=== PATIENT | female | born 1940 | race Caucasian/White ===

== ENCOUNTER 2021-11-11 17:21 | Inpatient (IN) | payer MEDICARE ==
[~2021-11-11] VITALS: Ht 154.9 cm; Wt 52.0 kg
[2021-11-11 17:57] LABS: COVID AG,FIA SOURCE NASOPHARYNGEAL
[2021-11-11 18:07] LABS: APPEARANCE,URINE HAZY (CLEAR); BILIRUBIN,URINE NEGATIVE (NEGATIVE); GLUCOSE, URINE (UA) NEGATIVE (NEGATIVE); KETONES,URINE NEGATIVE (NEGATIVE); LEUKOCYTE ESTERASE ,URINE LARGE (NEGATIVE); NITRATE,URINE POSITIVE (NEGATIVE); OCCULT BLOOD,URINE NEGATIVE (NEGATIVE); PH,URINE 5.5 (5.0-8.0); PROTEIN,URINE 30-70 mg/dL (NEGATIVE); SPECIFIC GRAVITIY, URINE 1.011 (1.003-1.030); UROBILINOGEN,URINE <=1.0 mg/dL (<=1.0)
[2021-11-11] MEDS ORDERED: DIAZEPAM 5 MG/ML 2 ML SYRINGE IVP ONE ×2 (18:15→19:45)
[2021-11-11] MEDS ORDERED: HALOPERIDOL LACTATE 5 MG/ML VIAL IVP ONE (18:15)
[2021-11-11 18:21] LABS: BACTERIA,URINE Many /HPF (None Seen); RBC,URINE None Seen /HPF (0-2); WBC,URINE 26-50 /HPF (0-5)
[2021-11-11] MEDS ORDERED: CefTRIAXone 1 GM/DEXTROSE 50 ML IV ONE (20:30)
[2021-11-11] MEDS ORDERED: MIDAZOLAM HCL 2 MG/2 ML VIAL IVP ONE (21:00)
[2021-11-11 21:51] LABS: BASOPHILS % (AUTO) 0.6 % (0.0-2.0); EOSINOPHILS % (AUTO) 1.3 % (1.0-6.0); HEMATOCRIT 28.4 % (36-46); HEMOGLOBIN 9.5 g/dL (12.0-16.0); LYMPHOCYTES # (AUTO) 1.3 K/uL (1.0-4.8); MEAN CORPUSCULAR HEMOGLOBIN 31.6 pg (26.0-34.0); MEAN CORPUSCULAR HGB CONC 33.4 G/dL (31.0-37.0); MEAN CORPUSCULAR VOLUME 95 fL (80-100); MONOCYTES # (AUTO) 0.6 K/uL (0.1-1.0); MONOCYTES % (AUTO) 8.8 % (2.0-9.0); NEUTROPHILS # (AUTO) 4.8 K/uL (1.8-7.7); NEUTROPHILS % (AUTO) 70.3 % (40.0-70.0); PLATELET COUNT (AUTO) 159 K/uL (150-450)
[2021-11-11 22:00] LABS: CALCIUM, TOTAL 9.4 mg/dL (8.8-10.5); CREATININE 1.57 mg/dL (0.60-1.30); POTASSIUM 4.1 mmol/L (3.5-5.1)
[2021-11-11 22:10] LABS: ALBUMIN 3.6 g/dL (3.4-5.0); BILIRUBIN,TOTAL 0.5 mg/dL (0.1-1.0); TOTAL PROTEIN, SERUM 7.6 g/dL (6.4-8.2)
[2021-11-11] MEDS ORDERED: BISACODYL 10 MG RECTAL RECTAL SUPPOSITORY PR PRN (22:15)
[2021-11-11] MEDS: AmLODIPine BESYLATE 5 MG TABLET PO SCH (22:15)
[2021-11-11] MEDS ORDERED: ACETAMINOPHEN 325 MG TABLET PO PRN (22:15)
[2021-11-11] MEDS ORDERED: SODIUM CHLORIDE 0.9% 1,000 ML IV ONE (22:15)
[2021-11-11] MEDS: CARVEDILOL 6.25 MG TABLET PO SCH (22:30)
[2021-11-11] MEDS: ATORVASTATIN CALCIUM 20 MG TABLET PO SCH (22:30)
[2021-11-11] MEDS ORDERED: ASPIRIN 81 MG CHEWABLE TABLET PO SCH (22:30)
[2021-11-11] MEDS ORDERED: ASPIRIN 81 MG CHEWABLE TABLET PO ONE (22:45)
[2021-11-12] VITALS (7 sets, daily range): BP systolic 126–173; BP diastolic 58–94
[2021-11-12] MEDS: LORazepam 2 MG/ML VIAL IVP PRN ×2 (02:38→13:42)
[2021-11-12] MEDS: CARVEDILOL 6.25 MG TABLET PO SCH ×3 (07:32→21:19)
[2021-11-12] MEDS: FAMOTIDINE 20 MG TABLET PO SCH (07:32)
[2021-11-12] MEDS: DOCUSATE SODIUM 100 MG CAPSULE PO SCH ×2 (07:32→21:19)
[2021-11-12] MEDS: HEPARIN SODIUM,PORCINE 5,000 UNITS/ML VIAL SQ SCH ×4 (08:00→15:02)
[2021-11-12] MEDS: ASPIRIN 81 MG CHEWABLE TABLET PO SCH (21:19)
[2021-11-12] MEDS: ATORVASTATIN CALCIUM 20 MG TABLET PO SCH (21:19)
[2021-11-12] MEDS: AmLODIPine BESYLATE 5 MG TABLET PO SCH (21:20)
[2021-11-12] MEDS: RisperiDONE 0.5 MG TABLET PO SCH (21:21)
[2021-11-12] MEDS ORDERED: SODIUM CHLORIDE 0.9% 500 ML IV ONE (23:33)
[2021-11-13] MEDS: CefTRIAXone 1 GM/DEXTROSE 50 ML IV SCH
[2021-11-13] MEDS: HEPARIN SODIUM,PORCINE 5,000 UNITS/ML VIAL SQ SCH ×3 (00:07→16:00)
[2021-11-13 04:26] VITALS: BP 122/60
[2021-11-13 08:24] VITALS: BP 149/65
[2021-11-13] MEDS: DOCUSATE SODIUM 100 MG CAPSULE PO SCH (09:00)
[2021-11-13] MEDS: FAMOTIDINE 20 MG TABLET PO SCH (09:00)
[2021-11-13] MEDS: CARVEDILOL 6.25 MG TABLET PO SCH (09:00)
[2021-11-13 16:18] VITALS: BP 148/104
[2021-11-13] MEDS: LORazepam 2 MG/ML VIAL IVP PRN (17:45)
[2021-11-14 00:28] VITALS: BP 136/72
[2021-11-14] MEDS: DOCUSATE SODIUM 100 MG CAPSULE PO SCH ×3 (00:52→21:28)
[2021-11-14] MEDS: ATORVASTATIN CALCIUM 20 MG TABLET PO SCH ×2 (00:52→21:28)
[2021-11-14] MEDS: ASPIRIN 81 MG CHEWABLE TABLET PO SCH ×2 (00:52→21:28)
[2021-11-14] MEDS: AmLODIPine BESYLATE 5 MG TABLET PO SCH ×2 (00:53→21:29)
[2021-11-14] MEDS: RisperiDONE 0.5 MG TABLET PO SCH (00:53)
[2021-11-14] MEDS: CARVEDILOL 6.25 MG TABLET PO SCH ×3 (00:53→21:28)
[2021-11-14] MEDS: CefTRIAXone 1 GM/DEXTROSE 50 ML IV SCH (00:54)
[2021-11-14] MEDS: LORazepam 2 MG/ML VIAL IVP PRN (01:04)
[2021-11-14] MEDS: HEPARIN SODIUM,PORCINE 5,000 UNITS/ML VIAL SQ SCH ×3 (01:05→16:54)
[2021-11-14 05:00] VITALS: BP 129/78
[2021-11-14 09:08] VITALS: BP 147/87
[2021-11-14] MEDS: FAMOTIDINE 20 MG TABLET PO SCH (09:53)
[2021-11-14] MEDS: QUEtiapine FUMARATE 25 MG TABLET PO SCH ×2 (11:18→21:28)
[2021-11-14 12:01] VITALS: BP 111/65
[2021-11-14 16:00] VITALS: BP 148/67
[2021-11-14] MEDS: VALPROIC ACID 250 MG/5 ML SOLUTION UDCUP PO SCH ×2 (16:53→21:29)
[2021-11-14 20:02] VITALS: BP 148/97
[2021-11-15] VITALS (7 sets, daily range): BP systolic 118–149; BP diastolic 50–84
[2021-11-15] MEDS: HEPARIN SODIUM,PORCINE 5,000 UNITS/ML VIAL SQ SCH ×4 (00:57→23:21)
[2021-11-15] MEDS: CefTRIAXone 1 GM/DEXTROSE 50 ML IV SCH ×2 (00:57→23:23)
[2021-11-15] MEDS: QUEtiapine FUMARATE 25 MG TABLET PO SCH ×2 (08:57→20:30)
[2021-11-15] MEDS: FAMOTIDINE 20 MG TABLET PO SCH (08:57)
[2021-11-15] MEDS: VALPROIC ACID 250 MG/5 ML SOLUTION UDCUP PO SCH ×3 (08:58→20:30)
[2021-11-15] MEDS: DOCUSATE SODIUM 100 MG CAPSULE PO SCH ×2 (08:58→20:29)
[2021-11-15] MEDS: CARVEDILOL 6.25 MG TABLET PO SCH ×2 (08:58→20:34)
[2021-11-15] MEDS: ATORVASTATIN CALCIUM 20 MG TABLET PO SCH (20:29)
[2021-11-15] MEDS: ASPIRIN 81 MG CHEWABLE TABLET PO SCH (20:29)
[2021-11-15] MEDS: AmLODIPine BESYLATE 5 MG TABLET PO SCH (20:34)
[2021-11-15] MEDS ORDERED: SODIUM CHLORIDE 0.9% 250 ML IV ONE (23:11)
[2021-11-16 02:56] LABS: GLUCOMETER DEV NAME(LOC) 6N.2; GLUCOSE,POINT OF CARE 198 MG/DL (70-110)
[2021-11-16 05:50] VITALS: BP 126/78
[2021-11-16] MEDS: HEPARIN SODIUM,PORCINE 5,000 UNITS/ML VIAL SQ SCH ×3 (08:00→23:49)
[2021-11-16] MEDS: DOCUSATE SODIUM 100 MG CAPSULE PO SCH ×2 (09:47→20:12)
[2021-11-16] MEDS: CARVEDILOL 6.25 MG TABLET PO SCH ×2 (09:48→20:11)
[2021-11-16] MEDS: QUEtiapine FUMARATE 25 MG TABLET PO SCH ×2 (09:48→20:12)
[2021-11-16] MEDS: FAMOTIDINE 20 MG TABLET PO SCH (09:48)
[2021-11-16] MEDS: VALPROIC ACID 250 MG/5 ML SOLUTION UDCUP PO SCH ×3 (09:48→20:09)
[2021-11-16 10:14] VITALS: BP 136/60
[2021-11-16] MEDS: QUEtiapine FUMARATE 25 MG TABLET PO PRN (18:13)
[2021-11-16 19:38] VITALS: BP 146/81
[2021-11-16] MEDS: AmLODIPine BESYLATE 5 MG TABLET PO SCH (20:11)
[2021-11-16] MEDS: ASPIRIN 81 MG CHEWABLE TABLET PO SCH (20:11)
[2021-11-16] MEDS: ATORVASTATIN CALCIUM 20 MG TABLET PO SCH (20:11)
[2021-11-16] MEDS: CefTRIAXone 1 GM/DEXTROSE 50 ML IV SCH (23:09)
[2021-11-17 05:13] VITALS: BP 121/62
[2021-11-17] MEDS: HEPARIN SODIUM,PORCINE 5,000 UNITS/ML VIAL SQ SCH ×3 (08:00→23:17)
[2021-11-17] MEDS: FAMOTIDINE 20 MG TABLET PO SCH (08:36)
[2021-11-17] MEDS: DOCUSATE SODIUM 100 MG CAPSULE PO SCH ×2 (08:36→20:45)
[2021-11-17] MEDS: CARVEDILOL 6.25 MG TABLET PO SCH ×2 (08:37→20:45)
[2021-11-17] MEDS: VALPROIC ACID 250 MG/5 ML SOLUTION UDCUP PO SCH ×3 (08:37→20:45)
[2021-11-17] MEDS: QUEtiapine FUMARATE 25 MG TABLET PO SCH ×2 (08:37→20:45)
[2021-11-17] MEDS: QUEtiapine FUMARATE 25 MG TABLET PO PRN (18:02)
[2021-11-17] MEDS: ATORVASTATIN CALCIUM 20 MG TABLET PO SCH (20:45)
[2021-11-17] MEDS: AmLODIPine BESYLATE 5 MG TABLET PO SCH (20:45)
[2021-11-17] MEDS: ASPIRIN 81 MG CHEWABLE TABLET PO SCH (20:45)
[2021-11-17 20:54] VITALS: BP 119/54
[2021-11-18] MEDS: HEPARIN SODIUM,PORCINE 5,000 UNITS/ML VIAL SQ SCH ×3 (08:00→23:19)
[2021-11-18] MEDS: FAMOTIDINE 20 MG TABLET PO SCH (08:34)
[2021-11-18] MEDS: CARVEDILOL 6.25 MG TABLET PO SCH ×2 (08:35→21:00)
[2021-11-18] MEDS: DOCUSATE SODIUM 100 MG CAPSULE PO SCH ×2 (08:46→21:00)
[2021-11-18 08:47] VITALS: BP 168/82
[2021-11-18] MEDS: VALPROIC ACID 250 MG/5 ML SOLUTION UDCUP PO SCH ×3 (12:54→21:20)
[2021-11-18] MEDS: QUEtiapine FUMARATE 25 MG TABLET PO SCH ×2 (12:54→21:21)
[2021-11-18 16:13] VITALS: BP 129/85
[2021-11-18] MEDS: LORazepam 2 MG/ML VIAL IVP PRN (16:28)
[2021-11-18] MEDS: QUEtiapine FUMARATE 25 MG TABLET PO PRN (16:32)
[2021-11-18 19:42] VITALS: BP 121/80
[2021-11-18] MEDS: AmLODIPine BESYLATE 5 MG TABLET PO SCH (21:00)
[2021-11-18] MEDS: ASPIRIN 81 MG CHEWABLE TABLET PO SCH (21:18)
[2021-11-18] MEDS: ATORVASTATIN CALCIUM 20 MG TABLET PO SCH (21:20)
[2021-11-19] MEDS: QUEtiapine FUMARATE 25 MG TABLET PO PRN ×2 (02:04→14:01)
[2021-11-19 04:30] VITALS: BP 135/83
[2021-11-19] MEDS: LORazepam 2 MG/ML VIAL IVP PRN (04:34)
[2021-11-19 08:19] VITALS: BP 131/54
[2021-11-19] MEDS: DOCUSATE SODIUM 100 MG CAPSULE PO SCH ×2 (09:00→20:22)
[2021-11-19] MEDS: HEPARIN SODIUM,PORCINE 5,000 UNITS/ML VIAL SQ SCH ×3 (09:48→23:30)
[2021-11-19] MEDS: FAMOTIDINE 20 MG TABLET PO SCH (09:49)
[2021-11-19] MEDS: CARVEDILOL 6.25 MG TABLET PO SCH ×2 (09:49→20:22)
[2021-11-19] MEDS: QUEtiapine FUMARATE 25 MG TABLET PO SCH ×2 (09:49→20:23)
[2021-11-19] MEDS: VALPROIC ACID 250 MG/5 ML SOLUTION UDCUP PO SCH ×3 (09:52→20:23)
[2021-11-19 16:01] VITALS: BP 124/92
[2021-11-19 19:56] VITALS: BP 162/77
[2021-11-19] MEDS: ASPIRIN 81 MG CHEWABLE TABLET PO SCH (20:22)
[2021-11-19] MEDS: ATORVASTATIN CALCIUM 20 MG TABLET PO SCH (20:23)
[2021-11-19] MEDS: AmLODIPine BESYLATE 5 MG TABLET PO SCH (20:23)
[2021-11-20 04:22] VITALS: BP 145/67
[2021-11-20] MEDS: HEPARIN SODIUM,PORCINE 5,000 UNITS/ML VIAL SQ SCH ×3 (10:03→23:55)
[2021-11-20] MEDS: FAMOTIDINE 20 MG TABLET PO SCH (10:04)
[2021-11-20] MEDS: DOCUSATE SODIUM 100 MG CAPSULE PO SCH ×2 (10:04→20:09)
[2021-11-20] MEDS: QUEtiapine FUMARATE 25 MG TABLET PO SCH ×2 (10:04→20:10)
[2021-11-20] MEDS: CARVEDILOL 6.25 MG TABLET PO SCH ×2 (10:04→20:10)
[2021-11-20] MEDS: VALPROIC ACID 250 MG/5 ML SOLUTION UDCUP PO SCH ×3 (10:05→20:10)
[2021-11-20 10:37] VITALS: BP 148/80
[2021-11-20 17:00] VITALS: BP 166/69
[2021-11-20] MEDS: QUEtiapine FUMARATE 25 MG TABLET PO PRN (17:19)
[2021-11-20] MEDS: AmLODIPine BESYLATE 5 MG TABLET PO SCH (20:10)
[2021-11-20] MEDS: ATORVASTATIN CALCIUM 20 MG TABLET PO SCH (20:10)
[2021-11-20] MEDS: ASPIRIN 81 MG CHEWABLE TABLET PO SCH (20:10)
[2021-11-20 20:19] VITALS: BP 146/70
[2021-11-20] MEDS: LORazepam 2 MG/ML VIAL IVP PRN (23:55)
[2021-11-21 05:00] VITALS: BP 144/78
[2021-11-21] MEDS: CARVEDILOL 6.25 MG TABLET PO SCH ×2 (08:45→19:46)
[2021-11-21] MEDS: FAMOTIDINE 20 MG TABLET PO SCH (08:45)
[2021-11-21] MEDS: QUEtiapine FUMARATE 25 MG TABLET PO SCH ×2 (08:46→19:45)
[2021-11-21] MEDS: DOCUSATE SODIUM 100 MG CAPSULE PO SCH ×2 (08:57→19:46)
[2021-11-21] MEDS: VALPROIC ACID 250 MG/5 ML SOLUTION UDCUP PO SCH ×3 (08:58→19:45)
[2021-11-21] MEDS: HEPARIN SODIUM,PORCINE 5,000 UNITS/ML VIAL SQ SCH ×2 (08:59→15:54)
[2021-11-21 09:03] VITALS: BP 105/65
[2021-11-21 16:59] VITALS: BP 124/62
[2021-11-21] MEDS: AmLODIPine BESYLATE 5 MG TABLET PO SCH (19:45)
[2021-11-21] MEDS: ASPIRIN 81 MG CHEWABLE TABLET PO SCH (19:45)
[2021-11-21] MEDS: ATORVASTATIN CALCIUM 20 MG TABLET PO SCH (19:46)
[2021-11-21 20:00] VITALS: BP 140/94
[2021-11-21] MEDS: LORazepam 2 MG/ML VIAL IVP PRN (20:02)
[2021-11-22] MEDS: HEPARIN SODIUM,PORCINE 5,000 UNITS/ML VIAL SQ SCH ×4 (01:25→23:20)
[2021-11-22] MEDS: LORazepam 2 MG/ML VIAL IVP PRN (03:04)
[2021-11-22 04:40] VITALS: BP 128/82
[2021-11-22] MEDS: VALPROIC ACID 250 MG/5 ML SOLUTION UDCUP PO SCH ×3 (08:24→21:46)
[2021-11-22] MEDS: DOCUSATE SODIUM 100 MG CAPSULE PO SCH ×3 (08:25→21:44)
[2021-11-22] MEDS: QUEtiapine FUMARATE 25 MG TABLET PO SCH ×2 (08:25→21:46)
[2021-11-22] MEDS: FAMOTIDINE 20 MG TABLET PO SCH (08:25)
[2021-11-22 08:30] VITALS: BP 166/87
[2021-11-22] MEDS: CARVEDILOL 6.25 MG TABLET PO SCH ×2 (08:53→21:45)
[2021-11-22] MEDS: ASPIRIN 81 MG CHEWABLE TABLET PO SCH (21:44)
[2021-11-22] MEDS: AmLODIPine BESYLATE 5 MG TABLET PO SCH (21:45)
[2021-11-22] MEDS: ATORVASTATIN CALCIUM 20 MG TABLET PO SCH (21:45)
[2021-11-23 05:57] VITALS: BP 117/83
[2021-11-23 07:55] VITALS: BP 139/59
[2021-11-23] MEDS: FAMOTIDINE 20 MG TABLET PO SCH (08:52)
[2021-11-23] MEDS: CARVEDILOL 6.25 MG TABLET PO SCH ×2 (08:53→20:56)
[2021-11-23] MEDS: HEPARIN SODIUM,PORCINE 5,000 UNITS/ML VIAL SQ SCH ×2 (08:53→16:00)
[2021-11-23] MEDS: VALPROIC ACID 250 MG/5 ML SOLUTION UDCUP PO SCH ×3 (08:53→20:59)
[2021-11-23] MEDS: DOCUSATE SODIUM 100 MG CAPSULE PO SCH ×2 (08:53→20:56)
[2021-11-23] MEDS: QUEtiapine FUMARATE 25 MG TABLET PO SCH ×2 (08:54→20:59)
[2021-11-23 16:01] VITALS: BP 143/85
[2021-11-23 19:29] VITALS: BP 129/80
[2021-11-23] MEDS: ASPIRIN 81 MG CHEWABLE TABLET PO SCH (20:56)
[2021-11-23] MEDS: ATORVASTATIN CALCIUM 20 MG TABLET PO SCH (20:56)
[2021-11-23] MEDS: AmLODIPine BESYLATE 5 MG TABLET PO SCH (20:56)
[2021-11-24] MEDS: LORazepam 2 MG/ML VIAL IVP PRN (00:50)
[2021-11-24 06:19] VITALS: BP 145/67
[2021-11-24] MEDS: HEPARIN SODIUM,PORCINE 5,000 UNITS/ML VIAL SQ SCH ×4 (10:54→23:06)
[2021-11-24] MEDS: VALPROIC ACID 250 MG/5 ML SOLUTION UDCUP PO SCH ×4 (10:58→21:00)
[2021-11-24] MEDS: DOCUSATE SODIUM 100 MG CAPSULE PO SCH ×3 (10:58→21:00)
[2021-11-24] MEDS: CARVEDILOL 6.25 MG TABLET PO SCH ×2 (10:59→20:43)
[2021-11-24] MEDS: FAMOTIDINE 20 MG TABLET PO SCH (10:59)
[2021-11-24] MEDS: QUEtiapine FUMARATE 25 MG TABLET PO SCH ×2 (10:59→20:44)
[2021-11-24] MEDS: ASPIRIN 81 MG CHEWABLE TABLET PO SCH (20:43)
[2021-11-24] MEDS: ATORVASTATIN CALCIUM 20 MG TABLET PO SCH (20:44)
[2021-11-24] MEDS: AmLODIPine BESYLATE 5 MG TABLET PO SCH (20:44)
[2021-11-24 20:55] VITALS: BP 105/77
[2021-11-24] MEDS: QUEtiapine FUMARATE 25 MG TABLET PO PRN (23:12)
[2021-11-25] MEDS: DOCUSATE SODIUM 100 MG CAPSULE PO SCH ×2 (09:00→20:46)
[2021-11-25] MEDS: VALPROIC ACID 250 MG/5 ML SOLUTION UDCUP PO SCH ×3 (09:40→20:45)
[2021-11-25] MEDS: QUEtiapine FUMARATE 25 MG TABLET PO SCH ×2 (09:40→20:45)
[2021-11-25] MEDS: FAMOTIDINE 20 MG TABLET PO SCH (09:40)
[2021-11-25] MEDS: CARVEDILOL 6.25 MG TABLET PO SCH ×2 (09:40→22:26)
[2021-11-25] MEDS: HEPARIN SODIUM,PORCINE 5,000 UNITS/ML VIAL SQ SCH ×2 (09:41→16:00)
[2021-11-25 11:51] VITALS: BP 140/78
[2021-11-25] MEDS: ASPIRIN 81 MG CHEWABLE TABLET PO SCH (20:46)
[2021-11-25] MEDS: ATORVASTATIN CALCIUM 20 MG TABLET PO SCH (20:47)
[2021-11-25] MEDS: LORazepam 2 MG/ML VIAL IVP PRN (21:22)
[2021-11-25] MEDS: QUEtiapine FUMARATE 25 MG TABLET PO PRN (22:26)
[2021-11-25] MEDS: AmLODIPine BESYLATE 5 MG TABLET PO SCH (22:27)
[2021-11-26] MEDS: HEPARIN SODIUM,PORCINE 5,000 UNITS/ML VIAL SQ SCH ×4 (00:21→23:30)
[2021-11-26 01:15] VITALS: BP 111/41
[2021-11-26 05:30] VITALS: BP 100/71
[2021-11-26] MEDS: DOCUSATE SODIUM 100 MG CAPSULE PO SCH ×2 (09:00→21:00)
[2021-11-26 10:02] VITALS: BP 154/99
[2021-11-26] MEDS: VALPROIC ACID 250 MG/5 ML SOLUTION UDCUP PO SCH ×3 (10:10→23:30)
[2021-11-26] MEDS: CARVEDILOL 6.25 MG TABLET PO SCH ×2 (10:11→23:30)
[2021-11-26] MEDS: QUEtiapine FUMARATE 25 MG TABLET PO SCH ×2 (10:11→23:30)
[2021-11-26] MEDS: FAMOTIDINE 20 MG TABLET PO SCH (10:11)
[2021-11-26 16:02] VITALS: BP 121/79
[2021-11-26 23:30] VITALS: BP 113/77
[2021-11-26] MEDS: AmLODIPine BESYLATE 5 MG TABLET PO SCH (23:30)
[2021-11-26] MEDS: ASPIRIN 81 MG CHEWABLE TABLET PO SCH (23:30)
[2021-11-26] MEDS: ATORVASTATIN CALCIUM 20 MG TABLET PO SCH (23:31)
[2021-11-27 05:22] VITALS: BP 143/82
[2021-11-27 07:57] VITALS: BP 143/85
[2021-11-27] MEDS: HEPARIN SODIUM,PORCINE 5,000 UNITS/ML VIAL SQ SCH ×2 (09:23→15:40)
[2021-11-27] MEDS: QUEtiapine FUMARATE 25 MG TABLET PO SCH ×2 (09:23→21:53)
[2021-11-27] MEDS: FAMOTIDINE 20 MG TABLET PO SCH (09:24)
[2021-11-27] MEDS: DOCUSATE SODIUM 100 MG CAPSULE PO SCH ×2 (09:24→21:52)
[2021-11-27] MEDS: CARVEDILOL 6.25 MG TABLET PO SCH ×2 (09:24→21:52)
[2021-11-27] MEDS: VALPROIC ACID 250 MG/5 ML SOLUTION UDCUP PO SCH ×3 (09:24→22:15)
[2021-11-27 15:51] VITALS: BP 141/77
[2021-11-27] MEDS: AmLODIPine BESYLATE 5 MG TABLET PO SCH (21:51)
[2021-11-27] MEDS: ATORVASTATIN CALCIUM 20 MG TABLET PO SCH (21:52)
[2021-11-27] MEDS: ASPIRIN 81 MG CHEWABLE TABLET PO SCH (21:54)
[2021-11-27 22:30] VITALS: BP 149/77
[2021-11-28] MEDS: QUEtiapine FUMARATE 25 MG TABLET PO PRN (02:55)
[2021-11-28 05:30] VITALS: BP 137/84
[2021-11-28] MEDS: LORazepam 2 MG/ML VIAL IVP PRN (05:56)
[2021-11-28] MEDS: DOCUSATE SODIUM 100 MG CAPSULE PO SCH ×2 (08:22→20:58)
[2021-11-28] MEDS: HEPARIN SODIUM,PORCINE 5,000 UNITS/ML VIAL SQ SCH ×3 (08:22→17:06)
[2021-11-28] MEDS: FAMOTIDINE 20 MG TABLET PO SCH (08:22)
[2021-11-28] MEDS: VALPROIC ACID 250 MG/5 ML SOLUTION UDCUP PO SCH ×3 (08:22→20:59)
[2021-11-28] MEDS: QUEtiapine FUMARATE 25 MG TABLET PO SCH ×2 (08:22→20:59)
[2021-11-28] MEDS: CARVEDILOL 6.25 MG TABLET PO SCH ×2 (08:22→20:58)
[2021-11-28 08:29] VITALS: BP 172/80
[2021-11-28 16:52] VITALS: BP 129/72
[2021-11-28] MEDS: ASPIRIN 81 MG CHEWABLE TABLET PO SCH (20:58)
[2021-11-28] MEDS: AmLODIPine BESYLATE 5 MG TABLET PO SCH (20:58)
[2021-11-28] MEDS: ATORVASTATIN CALCIUM 20 MG TABLET PO SCH (20:58)
[2021-11-29] VITALS: BP 120/61
[2021-11-29] MEDS: QUEtiapine FUMARATE 25 MG TABLET PO PRN ×2 (02:09→23:33)
[2021-11-29 06:30] VITALS: BP 139/76
[2021-11-29] MEDS: HEPARIN SODIUM,PORCINE 5,000 UNITS/ML VIAL SQ SCH ×4 (08:00→23:33)
[2021-11-29] MEDS: CARVEDILOL 6.25 MG TABLET PO SCH ×2 (08:23→20:58)
[2021-11-29] MEDS: QUEtiapine FUMARATE 25 MG TABLET PO SCH ×2 (08:23→20:59)
[2021-11-29] MEDS: DOCUSATE SODIUM 100 MG CAPSULE PO SCH ×2 (08:23→20:58)
[2021-11-29] MEDS: FAMOTIDINE 20 MG TABLET PO SCH (08:23)
[2021-11-29] MEDS: VALPROIC ACID 250 MG/5 ML SOLUTION UDCUP PO SCH ×3 (08:24→20:59)
[2021-11-29 19:50] VITALS: BP 115/84
[2021-11-29] MEDS: AmLODIPine BESYLATE 5 MG TABLET PO SCH (20:58)
[2021-11-29] MEDS: ATORVASTATIN CALCIUM 20 MG TABLET PO SCH (20:58)
[2021-11-29] MEDS: ASPIRIN 81 MG CHEWABLE TABLET PO SCH (20:59)
[2021-11-29] MEDS: LORazepam 2 MG/ML VIAL IVP PRN (22:27)
[2021-11-30] MEDS: HEPARIN SODIUM,PORCINE 5,000 UNITS/ML VIAL SQ SCH (08:00)
[2021-11-30] MEDS: DOCUSATE SODIUM 100 MG CAPSULE PO SCH (08:08)
[2021-11-30] MEDS: QUEtiapine FUMARATE 25 MG TABLET PO SCH (08:09)
[2021-11-30] MEDS: FAMOTIDINE 20 MG TABLET PO SCH (08:09)
[2021-11-30] MEDS: VALPROIC ACID 250 MG/5 ML SOLUTION UDCUP PO SCH (08:09)
[2021-11-30] MEDS: CARVEDILOL 6.25 MG TABLET PO SCH (08:09)
== END 2021-11-30 14:30 | disposition home or self-care (01) | DRG 682 ==
LOC: EMS 17:24 → 5S 22:28 → 6N 11-15 18:08
PROVIDERS: ADMIT Internal Medicine; ATTEND Internal Medicine
DX: N17.9 Acute kidney failure, unspecified (principal); G93.41 Metabolic encephalopathy; N39.0 Urinary tract infection, site not specified; R62.7 Adult failure to thrive; I10 Essential (primary) hypertension; Z20.822 Contact with and (suspected) exposure to COVID-19; R77.8 Other specified abnormalities of plasma proteins; F03.90 Unspecified dementia, unspecified severity, without behavioral disturbance, psychotic disturbance, mood disturbance, and anxiety; E86.0 Dehydration; E11.9 Type 2 diabetes mellitus without complications; D64.9 Anemia, unspecified; Z79.899 Other long term (current) drug therapy; Z87.440 Personal history of urinary (tract) infections; Z68.21 Body mass index [BMI] 21.0-21.9, adult; Z91.19 Patient's noncompliance with other medical treatment and regimen
CPT/HCPCS: 71045; 80053; 81001; 82962; 83690; 84484; 85025; 87081; 87086; 92610; 93005; 93306; 99291; J0696; J1630; J1644; J2060; J2250; J7030; J7040; J7050; 36415-L1; 36415-TC